=== PATIENT | female | born 1960 | race Caucasian/White ===

== ENCOUNTER 2017-01-10 17:28 | Observation (INO) ==
[2017-01-10] MEDS ORDERED: Ondansetron 4 MG/2 ML VIAL IM ONE (17:41)
[2017-01-10] MEDS ORDERED: *HR* HYDROmorphone (PF) 1 MG/ML SYRINGE IM ONE (17:41)
--- NOTE | 2017-01-10 17:47 | Emergency Department Note ---
Disposition Clinical Impression: Ureterolithiasis Hydronephrosis Qualifiers: Hydronephrosis type: with renal calculous obstruction Qualified Code(s): N13.2 - Hydronephrosis with renal and ureteral calculous obstruction Disposition: Admitted As Inpatient Condition: Good Forms: Work/School Release, ED Satisfaction Letter Time of Disposition: 19:22 Abdominal Pain HPI - General Chief Complaint: ED Abdominal Pain Stated Complaint: R flank/abdominal pain Time Seen by Provider: 01/10/17 17:35 Source: patient Mode of arrival: ambulatory Limitations: no limitations Nursing Notes Reviewed: Yes Vital Signs Reviewed: Yes - History of Present Illness HPI Narrative: 56-year-old who had his kidneys removed couple days ago had a stent in place, removed the stent this morning and has severe pain in the right flank. The patient has taken her medications including Percocet and Flomax without improvement. Patient is in obvious pain on arrival. 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 Consistency: constant Location: R flank Pain Severity: severe Pain Scale: 10 Quality: stabbing Radiation: none Migration to: no migration Improves with: nothing Worsens with: nothing Treatments prior to arrival: prescription analgesics - Related Data Home Medications Medication Instructions Recorded Confirmed Magnesium Oxide [Magnesium] 250 mg PO DAILY 01/07/17 01/07/17 Multivitamin [Multi-Day Vitamins] 1 tab PO DAILY 01/07/17 01/07/17 Previous Rx's Medication Instructions Recorded Docusate [Colace] 100 mg PO BID #20 capsule 01/08/17 Oxybutynin [Ditropan] 5 mg PO TID PRN #30 tablet 01/08/17 Phenazopyridine HCl [Pyridium] 200 mg PO TIDAC #12 tab 01/08/17 Tamsulosin [Flomax] 0.4 mg PO DAILY #7 cap.er.24h 01/08/17 Allergies Allergy/AdvReac Type Severity Reaction Status Date / Time meperidine [From Demerol] AdvReac Hypertensio Verified 01/07/17 11:22 n Constitutional: Denies: fever, chills, weakness, weight change Eyes: Denies: eye pain, eye discharge, vision change ENT ED: Denies: ear pain, throat pain, dental pain, hearing loss, epistaxis, congestion, dysphagia Cardiovascular: Denies: chest pain, palpitations, dyspnea on exertion, edema, syncope Respiratory: Denies: cough, dyspnea, wheezes, hemoptysis, stridor Gastrointestinal: Denies: abdominal pain, nausea, vomiting, diarrhea, constipation, hematemesis, melena, hematochezia Genitourinary: Denies: dysuria, frequency, hematuria, discharge Musculoskeletal: Reports: back pain. Denies: neck pain, arthralgia, myalgia Integumentary: Denies: rash, abrasion, lesions Neurological: Denies: headache, weakness, numbness, paresthesias, confusion, abnormal gait, vertigo Psychiatric: Denies: anxiety, depression, suicidal thoughts, homicidal thoughts , auditory hallucinations, visual hallucinations Endocrine: Denies: fatigue Hematological/Lymphatic: Denies: easy bleeding, easy bruising Allergic/Immunologic: Denies: facial swelling, urticaria Abdominal Pain PMH - Past Medical History Medical history: Reports: kidney stones, other Female Surgical History: Reports: hysterectomy Psychiatric history: Reports: no psych history - Social History Smoking status: Never smoker Alcohol use: Reports: occasionally Drug use: Reports: none Physical Exam - General Limitations: no limitations General appearance: alert - Head Head exam: atraumatic, normocephalic, normal inspection - Eye Eye exam: Present: normal appearance, PERRL, EOMI - ENT ENT exam: normal exam, normal oropharynx, mucous membranes moist - Neck Neck exam: Present: normal inspection, full ROM, trachea midline - Chest Chest inspection: Present: normal inspection, symmetric chest wall rise - Respiratory Respiratory exam: Present: normal lung sounds bilaterally - Cardiovascular Cardiovascular exam: Present: regular rate, normal rhythm, normal heart sounds - Abdominal Exam Abdominal exam: Present: soft, Non-Tender. Absent: tenderness, distention, guarding, rebound, rigidity - Extremities Exam Extremities exam: Present: normal inspection, full ROM. Absent: tenderness, pedal edema - Expanded Lower Extremity Exam Neurovascular/Tendon exam: Absent: motor deficit, sensory deficit, tendon deficit Gait: observed and normal - Back Exam Back exam: Present: normal inspection, full ROM. Absent: tenderness - Neurological Exam Neurological exam: Present: alert, oriented X3 - Psychiatric Psychiatric exam: Present: normal affect, normal mood - Skin Skin exam: Present: warm, dry, intact, normal color Course - Reevaluation(s) Reevaluation #1: Patient has persistent flank pain although improved from when she got here. She has significant hydro-ureter and hydronephrosis. Be admitted for pain control and possible surgical intervention. Time: 19:21 - Consultations Consultation #1: Discussed with Dr. Og, admit. Time: 19:21 Vital Signs Temperature 98.2 F 01/10/17 17:31 Pulse Rate 66 01/10/17 17:31 Respiratory Rate 18 01/10/17 17:31 Blood Pressure 148/64 01/10/17 17:31 O2 Sat by Pulse Oximetry 97 01/10/17 17:31 Temperature 98.2 F 01/10/17 17:31 Pulse Rate 66 01/10/17 17:31 Respiratory Rate 18 01/10/17 17:31 Blood Pressure 148/64 01/10/17 17:31 O2 Sat by Pulse Oximetry 97 01/10/17 17:31 Oxygen Delivery Oxygen Delivery Room Air Abdominal Pain - Lab Data Lab results reviewed: Yes I reviewed the patient's lab results. Result diagrams: 01/10/17 17:52 01/10/17 17:52 Lab Results 01/10/17 01/10/17 Range/Units 17:52 17:52 WBC 11.5 H (4.3-11.1) K/mcL RBC 4.69 (3.82-4.97) M/mcL Hgb 14.5 D (11.5-15.4) g/dL Hct 44.8 (35.3-44.9) % MCV 95.5 (83.0-100.0) fL MCH 30.9 (28.0-33.3) pg MCHC 32.4 (31.6-35.5) g/dL RDW 13.8 (11.5-14.5) % Plt Count 279 (140-400) K/mcL MPV 9.9 (9.4-12.4) fL Immature Gran % 0.3 (0-4) % Seg Neutrophils % 69.4 % Lymphocytes % 22.2 % Monocytes % 6.4 % Eosinophils % 1.4 % Basophils % 0.3 % Neutrophils # 8.0 (1.6-8.9) K/mcL Lymphocytes # 2.6 (0.6-4.6) K/mcL Monocytes # 0.7 (0.0-1.3) K/mcL Eosinophils # 0.2 (0.0-0.6) K/mcL Basophils # 0.0 (0.0-0.2) K/mcL Sodium 141 (136-145) mEq/L Potassium 4.5 (3.5-4.5) mEq/L Chloride 104 (98-109) mEq/L Carbon Dioxide 27 (19-29) mEq/L BUN 19 (7-20) mg/dL Creatinine 0.90 (0.57-1.11) mg/dL Est GFR ( Amer) > 60 (> 60) Est GFR (Non-Af Amer) > 60 (> 60) BUN/Creatinine Ratio 21 (6-26) Glucose 88 (70-99) mg/dL Calculated Osmolality 294 (280-300) Calcium 10.1 D (8.6-10.8) mg/dL - Radiology Data Radiology results reviewed: Yes I reviewed the patient's radiology results. Abdomen/Pelvis CT 01/10/17 17:56 IMPRESSION: 1. The stone seen previously at the right ureteropelvic junction now appears fragmented, and the fragments are seen within the distal right ureter, creating severe right hydroureter and moderate right hydronephrosis. D/ / 01/10/2017 18:51:19 Elmer Villalta MD / migule Interpreting Provider: Elmer Villalta MD
[2017-01-10] MEDS ORDERED: Ketorolac 15 MG/ML VIAL IVP ONE (17:49)
[2017-01-10] MEDS ORDERED: *HR* HYDROmorphone (PF) 1 MG/ML SYRINGE IVP ONE (17:49)
[2017-01-10] MEDS ORDERED: Ondansetron 4 MG/2 ML VIAL IVP ONE (17:49)
[2017-01-10] MEDS ORDERED: 0.9 % Sodium Chloride 1,000 ML IVC ONE (17:59)
[2017-01-10 18:05] LABS: Basophils % 0.3 %; Eosinophils # 0.2 K/mcL (0.0-0.6); Eosinophils % 1.4 %; Hematocrit 44.8 % (35.3-44.9); Immature Granulocytes % 0.3 % (0-4); Lymphocytes # 2.6 K/mcL (0.6-4.6); Lymphocytes % 22.2 %; Mean Corpuscular HGB Conc 32.4 g/dL (31.6-35.5); Mean Corpuscular Hemoglobin 30.9 pg (28.0-33.3); Mean Corpuscular Volume 95.5 fL (83.0-100.0); Mean Platelet Volume 9.9 fL (9.4-12.4); Monocytes # 0.7 K/mcL (0.0-1.3); Monocytes % 6.4 %; Platelet Count 279 K/mcL (140-400); Red Blood Count 4.69 M/mcL (3.82-4.97); Red Cell Distribution Width 13.8 % (11.5-14.5); Segmented Neutrophils % 69.4 %
[2017-01-10 18:07] LABS: Hemoglobin 14.5 g/dL (11.5-15.4)
[2017-01-10 18:16] LABS: BUN/Creatinine Ratio 21 (6-26); Blood Urea Nitrogen 19 mg/dL (7-20); Carbon Dioxide 27 mEq/L (19-29); Chloride 104 mEq/L (98-109); Glucose 88 mg/dL (70-99); Osmolality,Calculated 294 (280-300); Potassium 4.5 mEq/L (3.5-4.5); Sodium 141 mEq/L (136-145); eGFR For African Americans > 60 (> 60); eGFR For Non-African Americans > 60 (> 60)
[2017-01-10 18:18] LABS: Calcium 10.1 mg/dL (8.6-10.8)
[2017-01-10] MEDS ORDERED: Acetaminophen 325 MG TABLET PO PRN (21:27)
[2017-01-10] MEDS ORDERED: Bisacodyl 10 MG RECTAL SUPPOSITORY RC ONE (21:44)
[2017-01-10] MEDS: 0.9 % Sodium Chloride 1,000 ML IVC SCH (22:51)
[2017-01-10] MEDS: *HR* HYDROmorphone (PF) 1 MG/ML SYRINGE IVP PRN (22:52)
[2017-01-10 23:19] LABS: Bilirubin,Urine Negative (Negative); Blood,Urine Large (Negative); Clarity,Urine Cloudy (Clear); Glucose,Urine (UA) Normal (Normal); Ketones,Urine Trace mg/dL (Negative); Leukocyte Esterase,Urine Small (Negative); Nitrite,Urine Positive (Negative); PH,Urine 6.5 pH Units (5.0-8.0); Protein,Urine 30 mg/dL (Neg-Trace); Specific Gravity,Urine 1.015 (1.010-1.025); Urobilinogen,Urine Normal (Normal)
[2017-01-10 23:21] LABS: Bacteria,Urine None Seen per hpf (None-Few); Hyaline Casts,Urine None Seen per lpf (None-Few); RBC,Urine TNTC per hpf (0-3); Squamous Epithelial Cell,Urine Many per lpf (None-Few); WBC,Urine 15-30 per hpf (0-3)
[2017-01-10 23:22] LABS: Color,Urine Dark Yellow (Yellow)
[2017-01-10] MEDS: Ketorolac 30 MG/ML VIAL IVP SCH (23:46)
[2017-01-10] MEDS: Ondansetron 4 MG/2 ML VIAL IVP PRN (23:50)
[2017-01-11] MEDS: *HR* OxyCODONE/APAP 5/325 TABLET PO PRN (02:37)
[2017-01-11] MEDS: *HR* HYDROmorphone (PF) 1 MG/ML SYRINGE IVP PRN ×3 (03:09→21:29)
[2017-01-11] MEDS: Ondansetron 4 MG/2 ML VIAL IVP PRN (06:01)
[2017-01-11] MEDS: Ketorolac 30 MG/ML VIAL IVP SCH ×3 (06:01→17:18)
[2017-01-11] MEDS ORDERED: Promethazine 12.5 MG in 0.9 % Sodium Chloride 50 ML IVPB PRN (08:26)
[2017-01-11] MEDS ORDERED: *HR* HYDROmorphone (PF) 1 MG/ML SYRINGE IVP ONE (09:06)
[2017-01-11] MEDS ORDERED: *HR* HYDROmorphone 20 MG/20 ML PCA IVC PRN (09:08)
[2017-01-11] MEDS ORDERED: Naloxone 0.4 MG/ML INJ IVP PRN (09:08)
[2017-01-11] MEDS ORDERED: *HR* LORazepam 2 MG/ML VIAL IVP PRN (09:11)
[2017-01-11] MEDS ORDERED: Scopolamine Patch 1.5 MG PATCH.TD72 TD SCH (09:15)
--- NOTE | 2017-01-11 09:32 | Urology History & Physical ---
Date of Encounter: 01/11/17 Time of Encounter: 09:26 Assessment and Plan (1) Hydronephrosis Current Visit: Yes Status: Acute 56-year-old woman status post right ureteroscopy, laser lithotripsy, and stent placement who developed right hydroureteronephrosis after her stent was removed yesterday. She has been admitted for pain control. I reviewed options with her. I discussed proceeding back to the operating room to extract the stone fragments and replacing a stent. The stent within stay in for proximal 7 days. She again had a lot of discomfort associated with the stent just prior to removing it. She would like to hold off on having another stent in place. Therefore, we discussed initiating medical expulsive therapy and pain control for her. She would like to try to pass these fragments on her own. I will continue ketorolac, antibiotics, and we will start a SALES SUPPORT COORDINATOR for pain control. Once her pain becomes adequately controlled then we can transition her over to oral pain medication. She agrees with this plan. Qualifiers: Hydronephrosis type: with renal calculous obstruction Qualified Code(s): N13.2 - Hydronephrosis with renal and ureteral calculous obstruction (2) Ureterolithiasis Current Visit: Yes Status: Acute (3) Constipation Current Visit: Yes Status: Acute She is having difficulty moving her bowels. I'll order MiraLAX and Dulcolax suppository daily for her. Qualifiers: Qualified Code(s): K59.03 - Drug induced constipation (4) Anxiety Current Visit: Yes Status: Acute With this pain she is having some anxiety. I will order some Ativan for her to try and provide her some relaxation. History of Present Illness Chief complaint: Right flank pain HPI: Ms. Burks is a 56 year old female who has a history of nephrolithiasis. On January 07, 2017 she underwent a right ureteroscopy laser lithotripsy, and stent placement. She removed her stent yesterday. Shortly thereafter she began to experience significant right flank pain with nausea and vomiting. She came to the emergency room. A CT scan was performed which showed some small stone debris in the right kidney. In addition there was layering stone in the distal right ureter with evidence of right hydroureteronephrosis. There was some stone debris seen at the ureterovesical junction. She was admitted for pain control and nausea control. She is still having significant right flank pain and nausea. I reviewed the CT scan with her and her . I showed them the distal stone fragments. They understand the extent of the stone debris. Past Med Surg Social Fam HX - Past Medical History Medical history: kidney stones, other Psychiatric history: no psych history - Past Surgical History Surgical History: hysterectomy - Social History Smoking Status: Never smoker Smokeless Tobacco Status: No Alcohol use: occasionally Drug use: none - Family History Mother Living Status: Hx Family Cancer: Yes Medications and Allergies Magnesium Oxide [Magnesium] 250 mg PO DAILY 01/07/17 [History] Multivitamin [Multi-Day Vitamins] 1 tab PO DAILY 01/07/17 [History] Docusate [Colace] 100 mg PO BID #20 capsule 01/08/17 [Rx] Oxybutynin [Ditropan] 5 mg PO TID PRN #30 tablet 01/08/17 [Rx] Phenazopyridine HCl [Pyridium] 200 mg PO TIDAC #12 tab 01/08/17 [Rx] Tamsulosin [Flomax] 0.4 mg PO DAILY #7 cap.er.24h 01/08/17 [Rx] Allergies meperidine [From Demerol] Adverse Reaction (Verified 01/07/17 11:22) Hypertension Review of Systems - Constitutional no chills, no fever(s) - EENT Nose, mouth and throat: no dizziness - Cardiovascular chest pain - Respiratory no dyspnea - Gastrointestinal nausea, vomiting - Genitourinary Genitourinary: flank pain, no hematuria - Musculoskeletal back pain - Integumentary no erythema, no rash - Neurological no weakness - Psychiatric no suicidal ideation - Hematologic/Lymphatic no easy bleeding - Allergic/Immunologic no wheezing Exam Initial Vital Signs Temp Pulse Resp BP Pulse Ox 98.2 F 66 18 148/64 97 01/10/17 17:31 01/10/17 17:31 01/10/17 17:31 01/10/17 17:31 01/10/17 17:31 - General physical appearance Present: well developed, well nourished, severe distress - Eyes Absent: icteric - ENT Present: normal nares - Neck Present: trachea midline - Respiratory Present: normal respiratory effort - Cardiovascular Cardiovascular exam IM: RRR - Abdomen Abdomen: Present: soft (Right flank pain) Urology Results - Labs 01/10/17 17:52 01/10/17 17:52 Abnormal lab results WBC 11.5 K/mcL (4.3-11.1) H 01/10/17 17:52 POC Glucose 96 (58-89) H 01/11/17 05:28 Urine Clarity Cloudy (Clear) A 01/10/17 23:00 Urine Protein 30 mg/dL (Neg-Trace) H 01/10/17 23:00 Urine Ketones Trace mg/dL (Negative) H 01/10/17 23:00 Urine Blood Large (Negative) H 01/10/17 23:00 Urine Nitrite Positive (Negative) A 01/10/17 23:00 Ur Leukocyte Esterase Small (Negative) H 01/10/17 23:00 Urine Microscopic RBC TNTC per hpf (0-3) H 01/10/17 23:00 Urine Microscopic WBC 15-30 per hpf (0-3) H 01/10/17 23:00 Ur Squamous Epith Cells Many per lpf (None-Few) H 01/10/17 23:00 Ur Culture Indicated? YES (NO) A 01/10/17 23:00 All other labs normal. - Imaging Abdominal x-ray: report reviewed, image reviewed CT scan - abdomen: report reviewed, image reviewed CT scan - pelvis: report reviewed, image reviewed
[2017-01-11] MEDS: 0.9 % Sodium Chloride 1,000 ML IVC SCH ×3 (09:33→21:33)
[2017-01-11] MEDS: Metoclopramide 10 MG in 0.9 % Sodium Chloride 50 ML IVPB SCH ×3 (10:34→21:32)
[2017-01-11] MEDS: Bisacodyl 10 MG RECTAL SUPPOSITORY RC PRN (21:42)
[2017-01-12] MEDS: Ketorolac 30 MG/ML VIAL IVP SCH ×2 (00:19→05:40)
[2017-01-12] MEDS: Metoclopramide 10 MG in 0.9 % Sodium Chloride 50 ML IVPB SCH (03:33)
[2017-01-12 04:42] LABS: Potassium 4.1 mEq/L (3.5-4.5)
[2017-01-12 04:43] LABS: Calcium 8.2 mg/dL (8.6-10.8)
[2017-01-12] MEDS: 0.9 % Sodium Chloride 1,000 ML IVC SCH (05:40)
--- NOTE | 2017-01-12 07:37 | Urology Progress Note ---
Date of Encounter: 01/12/17 Time of Encounter: 07:34 - Assessment and Plan (1) Hydronephrosis Current Visit: Yes Status: Acute Assessment and plan: Her right flank pain is improving. We will transition her off IV medication to just oral medication. Qualifiers: Hydronephrosis type: with renal calculous obstruction Qualified Code(s): N13.2 - Hydronephrosis with renal and ureteral calculous obstruction (2) Ureterolithiasis Current Visit: Yes Status: Acute (3) Constipation Current Visit: Yes Status: Acute Assessment and plan: Will give a bottle of magnesium citrate. If she can move her bowels today, will consider d/c home later on. Qualifiers: Qualified Code(s): K59.03 - Drug induced constipation (4) Anxiety Current Visit: Yes Status: Acute Assessment and plan: Improved. Will d/c lorazepam. Progress Note Narrative: 56 year old woman with right flank pain after stent removal. She is feeling better today. She is still feeling very constipated and wishes to move her bowels. Objective Initial Vital Signs Temp Pulse Resp BP Pulse Ox 98.2 F 66 18 148/64 97 01/10/17 17:31 01/10/17 17:31 01/10/17 17:31 01/10/17 17:31 01/10/17 17:31 - General physical appearance Present: well developed, well nourished, no distress - Respiratory Present: normal respiratory effort - Abdomen Present: soft - Labs 01/10/17 17:52 01/12/17 04:01 Diabetes panel 01/12/17 Range/Units 04:01 Sodium 139 (136-145) mEq/L Potassium 4.1 (3.5-4.5) mEq/L Chloride 113 H (98-109) mEq/L Carbon Dioxide 20 (19-29) mEq/L BUN 18 (7-20) mg/dL Creatinine 1.21 H (0.57-1.11) mg/dL Glucose 90 (70-99) mg/dL Calcium 8.2 L D (8.6-10.8) mg/dL Calcium panel 01/12/17 Range/Units 04:01 Calcium 8.2 L D (8.6-10.8) mg/dL Pituitary panel 01/12/17 Range/Units 04:01 Sodium 139 (136-145) mEq/L Potassium 4.1 (3.5-4.5) mEq/L Chloride 113 H (98-109) mEq/L Carbon Dioxide 20 (19-29) mEq/L BUN 18 (7-20) mg/dL Creatinine 1.21 H (0.57-1.11) mg/dL Glucose 90 (70-99) mg/dL Calcium 8.2 L D (8.6-10.8) mg/dL Adrenal panel 01/12/17 Range/Units 04:01 Sodium 139 (136-145) mEq/L Potassium 4.1 (3.5-4.5) mEq/L Chloride 113 H (98-109) mEq/L Carbon Dioxide 20 (19-29) mEq/L BUN 18 (7-20) mg/dL Creatinine 1.21 H (0.57-1.11) mg/dL Glucose 90 (70-99) mg/dL Calcium 8.2 L D (8.6-10.8) mg/dL Consult Discharge Plan - Plan Referrals: Linda Arias [Primary Care Provider] -
[2017-01-12] MEDS: *HR* OxyCODONE/APAP 5/325 TABLET PO PRN (11:56)
[2017-01-12 12:15] VITALS: BP 105/67
[2017-01-12] MEDS: Bisacodyl 10 MG RECTAL SUPPOSITORY RC PRN (12:37)
--- NOTE | 2017-01-12 16:01 | Electrocardiograph Report ---
[place] [id number] Test Date: 2017-01-11 Pat Name: Tita Burks Department: 115 Room: 3A Gender: F Enamel Applier: GRAYSON : 1960 Requested By: Varun Og Order Number: [id number] Reading MD: Abdulaziz Penaloza Measurements Intervals [place] Rate: 69 P: 55 AL: 154 QRS: 58 QRSD: 88 T: 50 QT: 398 QTc: 417 Interpretive Statements SINUS RHYTHM Electronically Signed On 01-12-2017 15:59:18 EDT by Abdulaziz Penaloza
--- NOTE | 2017-01-12 16:14 | Discharge Summary ---
Date of Encounter: 01/12/17 Time of Encounter: 16:12 - Discharge Diagnosis (1) Hydronephrosis Priority: Primary Status: Acute Qualifiers: Hydronephrosis type: with renal calculous obstruction Qualified Code(s): N13.2 - Hydronephrosis with renal and ureteral calculous obstruction (2) Ureterolithiasis Priority: Secondary Status: Acute (3) Constipation Priority: Secondary Status: Acute Qualifiers: Qualified Code(s): K59.03 - Drug induced constipation (4) Anxiety Priority: Secondary Status: Acute - Discharge Medications Prescriptions: OxyCODONE/APAP 5/325 [Percocet 5/325 MG] 2 each PO Q4HR PRN #20 tablet PRN Reason: Pain Polyethylene Glycol 3350 [MiraLAX Powder Bulk 17.9 Oz] 1 scoop PO DAILY #510 gm Tamsulosin [Flomax] 0.4 mg PO DAILY #14 capsule Home Medications: Magnesium Oxide [Magnesium] 250 mg PO DAILY 01/07/17 [History] Multivitamin [Multi-Day Vitamins] 1 tab PO DAILY 01/07/17 [History] Docusate [Colace] 100 mg PO BID #20 capsule 01/08/17 [Rx] Oxybutynin [Ditropan] 5 mg PO TID PRN #30 tablet 01/08/17 [Rx] Phenazopyridine HCl [Pyridium] 200 mg PO TIDAC #12 tab 01/08/17 [Rx] Tamsulosin [Flomax] 0.4 mg PO DAILY #7 cap.er.24h 01/08/17 [Rx] OxyCODONE/APAP 5/325 [Percocet 5/325 MG] 2 each PO Q4HR PRN #20 tablet 01/12/17 [Rx] Polyethylene Glycol 3350 [MiraLAX Powder Bulk 17.9 Oz] 1 scoop PO DAILY #510 gm 01/12/17 [Rx] Tamsulosin [Flomax] 0.4 mg PO DAILY #14 capsule 01/12/17 [Rx] Allergies/Adverse Reactions: Allergies meperidine [From Demerol] Adverse Reaction (Verified 01/11/17 10:49) Hypertension Labs on day of discharge: Labs from last 24 hours 01/12/17 04:01 Sodium 139 Potassium 4.1 Chloride 113 H Carbon Dioxide 20 BUN 18 Creatinine 1.21 H Est GFR ( Amer) 56 L Est GFR (Non-Af Amer) 46 L BUN/Creatinine Ratio 15 Glucose 90 Calculated Osmolality 289 Calcium 8.2 L D - Impressions ITS Impressions KUB X-Ray 01/11/17 07:32 IMPRESSION: 1. Distal right ureteral calculus is not seen on the current exam. 2. Limited assessment for renal calculi with a small calculus in the left kidney. D/ / Curry Thomas MD / Curry Thomas MD Interpreting Provider: Curry Thomas MD Date of admission: 01/10/17 20:36 Primary care physician: Linda Arias Discharging clinician: Varun Og Anticipated date of discharge: 01/12/17 - Patient Status Disposition: Home, Self-Care Condition: Good Overall status at discharge: patient is progressing back to baseline - Discharge Instructions Follow Up With: Linda Arias [Primary Care Provider] - Additional Instructions: Increase activities as tolerated. Follow-up with Dr. Og as previously scheduled. Call the office or return to the emergency department for any worsening pain, fevers, chills, nausea, or vomiting. - Diet and Activity Activity: increase activity as tolerated Diet: advance to your usual diet - Hospital Course Hospital course: Ms. Burks is a 56 year old female status post right ureteroscopy, laser lithotripsy, and stent placement from January 07, 2017. She removed her stent on January 10, 2017 and developed severe flank pain. She was admitted that day. The CT showed right hydroureteronephrosis. Her pain was eventually controlled as an inpatient and on January 12, 2017 she was transitioned to oral medications. Her pain was controlled well in the afternoon of the day of discharge. In addition, she was able to move her bowels. At this point she felt ready to be discharged home. - Time Spent with Patient Total time spent providing and/or coordinating discharge services: Less than 30 minutes Exam Initial Vital Signs Temp Pulse Resp BP Pulse Ox 98.2 F 66 18 148/64 97 01/10/17 17:31 01/10/17 17:31 01/10/17 17:31 01/10/17 17:01/10/17 17:31 - General physical appearance Present: well developed, well nourished, no distress - Eyes Absent: icteric - ENT Present: normal mucosa - Neck Present: trachea midline - Respiratory Present: normal respiratory effort - Cardiovascular Cardiovascular exam IM: RRR - Abdomen Abdomen: Present: soft
== END 2017-01-12 17:43 | disposition home or self-care (01) ==
LOC: EMEROO 17:28 → 3ANU 17:28
PROVIDERS: ADMIT Urology; ATTEND Urology